=== PATIENT | male | born 1955 | race Caucasian/White ===

== ENCOUNTER 2025-04-26 11:53 | Outpatient (OUT) | payer MEDICARE, SELFPAY ==
--- OUTSIDE RECORDS SUMMARY | 2025-04-12 09:21 | XMS_ITS | Encounter Summary ---
Author Organization [facility] Address [address], [address] [place] [address] Care Team Providers Care Heater Operator Name Role Phone Dorota Cody MD Primary Care Provider [phone] Reason for Referral * Imaging (Routine) - ClosedSpecialtyDiagnoses / ProceduresReferred By Contact Referred To ContactRadiology Diagnoses Cervicalgia Procedures CT CERVICAL SPINE WO CONTRAST Dorota Cody MD [address] [place] [address] Phone: tel: fax: Referral IDStatusReasonStart DateExpiration DateVisits RequestedVisits [id number]/9/20259/9/202511 Reason for Visit * Imaging (Routine) - ClosedSpecialtyDiagnoses / ProceduresReferred By Contact Referred To ContactRadiology Diagnoses Cervicalgia Procedures CT CERVICAL SPINE WO CONTRAST Dorota Cody MD [address] [place] [address] Phone: tel: fax: Referral IDStatusReasonStart DateExpiration DateVisits RequestedVisits [id number]/9/20259/9/202511 Encounter Details DateTypeDepartmentCare Team (Latest Contact Info)Ororbifdymg08/14/2025 9:21 AM EDT - 04/14/2025 11:59 PM EDTHospital Encounter [facility] [address] [place] [address] Cervicalgia Discharge Disposition: Home or Self Care Social History Tobacco UseTypesPacks/DayYears UsedDateSmoking Tobacco: FormerSmokeless Tobacco: FormerAlcohol UseStandard Drinks/WeekCommentsNever0 (1 standard drink = 0.6 oz pure alcohol)AUDIT-CAnswerDate RecordedQ1: How often do you have a drink containing alcohol?Never12/05/2023Q2: How many drinks containing alcohol do you have on a typical day when you are drinking?Patient does not drink12/05/2023Q3: How often do you have six or more drinks on one occasion?Never12/05/2023 Interpersonal Safety Domain Source: IP Abuse ScreeningAnswerDate Recorded Physical qdvhkXhjlvx15/07/2024Verbal hmljhLaqdbc51/07/2024Emotional abuseDenies 12/05/2023Financial umdohAbntjt99/07/2024Sexual igoqaWzzjvg57/07/2024Sex and Gender InformationValueDate RecordedSex Assigned at BirthNot on fileLegal Sex Male12/09/2016 1:49 PM EDTGender IdentityNot on fileSexual OrientationNot on filedocumented as of this encounter Plan of Treatment Not on file documented as of this encounter Procedures Procedure NamePriorityDate/TimeAssociated DiagnosisCommentsCT CERVICAL SPINE WO ETFSANVSVckdzbr78/14/2025 9:55 AM EDT Cervicalgia documented in this encounter Results * CT CERVICAL SPINE WO CONTRAST (04/12/2025 9:55 AM EDT)Anatomical Region LateralityModalityC-spine, T-spine, NeckComputed TomographySpecimen (Source) Anatomical Location / LateralityCollection Method / VolumeCollection Time Received Time04/12/2025 9:55 AM EDT Impressions 04/16/2025 7:34 AM EDT 1. No acute findings. Narrative 04/16/2025 7:34 AM EDT INDICATION: Cervicalgia COMPARISON: Cervical spine x-rays 02/25/2025. TECHNIQUE: Routine noncontrast CT cervical spine was performed. Coronal and sagittal reformatted images were obtained and reviewed. Radiation dose reduction was utilized (automated exposure control, mA or kV adjustment based on patient size, or iterative image reconstruction). FINDINGS: There is preservation of normal cervical lordosis. Grade 1 anterolisthesis of C2 on C3. No significant prevertebral soft tissue swelling. No facet subluxation or dislocation. Odontoid process appears intact. Atlanto-axial articulation is unremarkable. No acute fracture is identified. Moderate degenerative changes C2-C3 through C5-C6. Evaluation of individual disc levels is as follows: C2-3: There is no disc herniation. There is no spinal canal or neural foraminal stenosis. C3-4: Posterior disc osteophyte complex indenting the sac without significant central canal stenosis. There is moderate to severe bilateral neural foraminal narrowing. C4-5: Posterior disc osteophyte complex indenting the ventral thecal sac causing mild central canal stenosis. There is moderate to severe bilateral neural foraminal narrowing. C5-6: Posterior disc bulge indenting the ventral thecal sac without significant central canal stenosis. There is mild to moderate bilateral neural foraminal narrowing C6-7: Tiny posterior disc bulge indents ventral thecal sac without significant central canal stenosis. There is no significant bilateral neural foraminal C7-T1: There is no disc herniation. There is no spinal canal or neural foraminal stenosis. Procedure Note EliaHorace bro MD - 04/16/2025 INDICATION: Cervicalgia COMPARISON: Cervical spine x-rays 02/25/2025. TECHNIQUE: Routine noncontrast CT cervical spine was performed. Coronaland sagittal reformatted images were obtained and reviewed. Radiation dose reduction was utilized (automated exposure control, mA or kV adjustmentbased on patient size, or iterative image reconstruction). FINDINGS: There is preservation of normal cervical lordosis. Grade 1 anterolisthesisof C2 on C3. No significant prevertebral soft tissue swelling. No facet subluxation or dislocation. Odontoid process appears intact. Atlanto-axial articulation is unremarkable. No acute fracture is identified. Moderate degenerative changes C2-C3 through C5-C6. Evaluation of individual disc levels is as follows: C2-3: There is no disc herniation. There is no spinal canal or neuralforaminal stenosis. C3-4: Posterior disc osteophyte complex indenting the sac withoutsignificant central canal stenosis. There is moderate to severe bilateral neuralforaminal narrowing. C4-5: Posterior disc osteophyte complex indenting the ventral thecal sac causing mild central canal stenosis. There is moderate to severe bilateral neural foraminal narrowing. C5-6: Posterior disc bulge indenting the ventral thecal sac withoutsignificant central canal stenosis. There is mild to moderate bilateral neuralforaminal narrowing C6-7: Tiny posterior disc bulge indents ventral thecal sac withoutsignificant central canal stenosis. There is no significant bilateral neuralforaminal C7-T1: There is no disc herniation. There is no spinal canal or neural foraminal stenosis. IMPRESSION: 1. No acute findings. Authorizing ProviderResult TypeResult StatusMarcipedro Cody MDIMG CT ORDERABLES Final Result documented in this encounter Visit Diagnoses Diagnosis Cervicalgia documented in this encounter Care Teams Team MemberRelationshipSpecialtyStart [place] [address] [place] [phone] PCP - GeneralFamily Medicine12/05/21documented as of this encounter
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
--- OUTSIDE RECORDS SUMMARY | 2025-04-26 12:00 | XMS_ITS | Clinical Summary ---
Author Organization [facility] Address [address] [place] [address] [place] [address] Care Team Providers Care Controls Designer Name Role Phone Unavailable Primary Care Provider Unavailabl e Allergies No known active allergies Medications MedicationSigDispense QuantityRefillsLast FilledStart DateEnd DateStatus oxyCODONE 5 MG Tab take 1-2 tablets by mouth every 6 hours as needed for Severe Pain. 30 tablet 01/08/2016Active Additional Information Patient not taking.Reported on 04/18/2016 traMADol 50 MG Tab take 1 tablet by mouth 4 times daily. 120 tablet 01/08/2016Active acetaminophen 325 MG tablet take 1-2 tablets by mouth every 4 hours as needed for Mild Pain, Moderate Pain or Severe Pain. 30 tablet 01/08/2016Active citalopram 10 MG Tab take 1 tablet by mouth daily. 30 tablet 01/08/2016Active traZODone 150 MG Tab take 1 tablet by mouth at bedtime. 30 tablet 01/08/2016Active Additional Information Patient not taking.Reported on 04/18/2016 docusate 100 MG Cap take 1 capsule by mouth 2 times daily. 60 capsule 01/08/2016Active Additional Information Patient not taking.Reported on 04/18/2016 senna 17.2 MG Tab take 1 tablet by mouth daily. 30 tablet 01/08/2016Active Additional Information Patient not taking.Reported on 04/18/2016 melatonin 3 MG Tab take 2 tablets by mouth at bedtime. 30 tablet 01/08/2016Active Additional Information Patient not taking.Reported on 04/18/2016 lidocaine 5 % Patch Apply to R shoulder. Max of 12 hours of application then remove 30 patch 01/08/2016Active warfarin 4 MG tablet Indications:Deep vein thrombosistake 2 tablets by mouth every evening at 6 PM.. 60 tablet 01/09/2016Active Active Problems ProblemNoted DateDiagnosed DateHand edema12/28/2015Moderate protein-calorie edppkutpgauk58/28/2016Reactive lvcagrtgdmcliy71/28/2016Bacterial pneumonia 12/26/2015Acute blood loss ecjias4912/26/2015Elevated alkaline phosphatase level 12/26/2015Late effect of traumatic injury to brain12/22/2015Other diseases of nasal cavity and sinuses(478.19)09/23/2013 Social History Tobacco UseTypesPacks/DayYears UsedDateSmoking Tobacco: FormerAlcohol Use Standard Drinks/WeekCommentsNo0 (1 standard drink = 0.6 oz pure alcohol)Sex and Gender InformationValueDate RecordedSex Assigned at BirthNot on fileLegal Sex Male01/12/2013 3:53 PM EDTGender DbqlidgsVdqh61/29/2017 9:20 AM EDTSexual OrientationNot on file Last Filed Vital Signs Vital SignReadingTime TakenCommentsBlood Yeunaxid137/9201/09/2016 8:00 AM EDT Jlcbv464101/09/2016 8:00 AM MZWWyhgolbzqsn52.8 ??C (98.2 ??F)01/09/2016 8:00 AM EDTRespiratory Xlku515101/09/2016 8:00 AM EDTOxygen Vqukkyfmei50%01/09/2016 8:00 AM EDTInhaled Oxygen Concentration--Vzpctj89 kg (138 lb 14.2 oz)01/08/2016 3:30 AM PKLGprmon363.3 cm (5' 11 )12/22/2015 6:00 PM EDTBody Mass Index19.37 12/22/2015 6:00 PM EDT Plan of Treatment Health MaintenanceDue DateLast DoneCommentsHEPATITIS C VIRUS BJEHBMZUI82[birth year]10/1956 HHOIOSH97 1955TDAP (ADULT)1975LIPID WEBGIOAAO83/10/1997COLORECTAL CANCER SCREENING ZTBTRDYGTA54/10/2002PNEUMOCOCCAL VACCINE SERIES (1 of 1 - PCV) 2006ZOSTER (SHINGLES) VACCINE (1 of 2)2006PROSTATE CANCER SCREENING MROWRXLHHA90/10/2012BDOMINAL AORTIC ANEURYSM HIGH RISK ZOXKFF582COVID-19 VACCINE (2024- season)2025INFLUENZA VACCINE (#1)2025RSV VACCINE (1 - 1-dose 75+ series)2031HEP B VACCINEAged OutNo longer eligible based on patient's age to complete this topic Insurance Advance Directives For more information, please contact: [phone] (7:30 AM - 6PM [facility], Friday-Friday) * Full Code (Latest Code Status on File) Date ActivatedDate InactivatedCombeverly hospital12/22/2015 5:57 PM01/09/2016 4:53 PM
--- OUTSIDE RECORDS SUMMARY | 2025-04-26 12:00 | XMS_ITS | Clinical Summary ---
Author Organization [facility] Address [address] [place] [address] Care Team Providers Care Truck Driving Instructor Name Role Phone Dorota Cody MD Primary Care Provider [phone] Allergies No known active allergies Medications MedicationSigDispense QuantityRefillsLast FilledStart DateEnd DateStatus pantoprazole (ProtoNix) 20 MG EC tablet Take 20 mg by mouth in the morning.Active Active Problems ProblemNoted DateDiagnosed DatePrimary osteoarthritis of both hips01/20/2023 Rupture of pectoralis major alylku8404/06/2018Traumatic brain injury with loss of cpnzrwskvvvyx29/26/2017 Overview (01/20/2023): [facility] [id number] DOI 12/08/2015 DX S06.9X9A Traumatic intracranial subdural kohgfhschl65/26/2017 Overview (01/20/2023): [facility] [id number] DOI 12/08/2015 DX S06.5XA Deep venous thrombosis of lower yzflzurmg15/26/2017 Overview (01/20/2023): [facility] [id number] DOI 12/08/2015 DX I82.432 Type III open fracture of right ulna01/30/2016Acute deep vein thrombosis (DVT) of popliteal vein of left lower dgyzclwza99/22/2016 Overview (01/20/2023): Last Assessment & Plan: IVC filter placed while hospitalized for L popiteal DVT while patient was unable to be anticoagulated 2/2 SDHPatient now on coumadin currently managed per [facility] Patient to follow up with Dr. Arce as OP to discuss removal of IVC as recommended at hospital discharge Subdural nqivtpgc88/21/2016 Family History RelationNameStatusCommentsFatherpre diabetes Social History Tobacco UseTypesPacks/DayYears UsedDateSmoking Tobacco: NeverSmokeless Tobacco: NeverAlcohol UseStandard Drinks/WeekCommentsNever0 (1 standard drink = 0.6 oz pure alcohol)Sex and Gender InformationValueDate RecordedSex Assigned at Not on fileLegal MnpBmkg7409/11/2022 6:48 PM EDTGender IdentityNot on fileSexual OrientationNot on file Last Filed Vital Signs Vital SignReadingTime TakenCommentsBlood Mafakyeu751/58010/28/2024 12:56 PM EDT Mfsli268110/28/2024 12:56 PM IRHYltconwetop25.7 ??C (96.3 ??F)10/28/2024 12:56 PM EDTRespiratory Rugo625010/28/2024 12:56 PM EDTOxygen Saturation--Inhaled Oxygen Concentration--Iaoqgc51.6 kg (160 lb)10/28/2024 12:56 PM NQOEdrirh676.3 cm (5' 11 )10/28/2024 12:56 PM EDTBody Mass Index22.32010/28/2024 12:56 PM EDT Plan of Treatment Not on file Insurance Care Teams Team MemberRelationshipSpecialtyStart DateEnd Date Dorota Cody MD [facility] [place] [address] [facility]10/19/24
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
--- OUTSIDE RECORDS SUMMARY | 2025-04-26 12:00 | XMS_ITS | Clinical Summary ---
Author Organization [facility] Address [address] [place] [address] Care Team Providers Care Vessel Slagman Name Role Phone No, Physician Primary Care Provider Unavailabl e Allergies No known active allergies Medications MedicationSigDispense QuantityRefillsLast FilledStart DateEnd DateStatus warfarin (COUMADIN) 4 MG tablet Take 8 mg by mouth daily.Active citalopram (CELEXA) 10 MG tablet Take 10 mg by mouth daily.Active Active Problems ProblemNoted DateDiagnosed DateBacterial lynmtlnud41/22/2016 Assessment & Plan (12/21/2015 12:34 PM EDT): On Cipro PO, stop date 12/22 Acute deep vein thrombosis (DVT) of popliteal vein of left lower extremity 12/20/2015 Assessment & Plan (01/05/2016 8:50 AM EDT): IVC filter placed while hospitalized for L popiteal DVT while patient was unable to be anticoagulated 2/2 SDH Patient now on coumadin currently managed per [facility] physicians Patient to follow up with Dr. Arce as OP to discuss removal of IVC as recommended at hospital discharge Assessment & Plan (12/21/2015 12:34 PM EDT): L popliteal DVT - Unable to fully anticoagulate 2/2 SDH - IVC filter in place, continue prophylactic lovenox on d/c Sqfxooakgsjegg47/22/2016 Assessment & Plan (12/22/2015 8:09 AM EDT): Improved Platelet count 727 from 913/1048 Discontinue ASA therapy TBI (traumatic brain injury)12/09/2015 Assessment & Plan (12/21/2015 12:31 PM EDT): Tiny subdural hematoma along the anterior right middle cranial fossa - NSx has signed off - Ok to give ASA and Lovenox per neurosurgery - Significant cognitive deficits, will require inpatient rehab Open fracture of nasal bone with routine yuqqwkz5812/09/2015 Assessment & Plan (01/05/2016 8:44 AM EDT): Patient s/p nasal reduction 12/[address] Alarcon as OP as recommended at hospital discharge Assessment & Plan (12/21/2015 12:31 PM EDT): Comminuted displaced fracture of the right nasal bone / left nasal bone and bilateral maxillary spines - MF followed: s/p nasal reduction 12/07 - Sutures out - Recommend outpatient follow up - Local wound care Closed fracture of left scapula with routine uliprop8512/09/2015 Assessment & Plan (12/21/2015 12:32 PM EDT): Comminuted fracture of the left scapular body, fracture at the base of the coracoid process and nondisplaced fracture of the base of the acromion - Ortho followed: NOM Traumatic gzrqbpsthkyw03/11/2016 Assessment & Plan (01/05/2016 8:51 AM EDT): Repeat CXR performed today:Tiny residual left apical pneumothorax, significantly decreased in size Patient recommended to follow up in [address] Toribio Assessment & Plan (12/21/2015 12:33 PM EDT): - Resolved Fracture of pelvis with routine zjtibum9812/09/2015 Assessment & Plan (12/21/2015 12:34 PM EDT): L sacral, pubic and iliac fractures - Ortho following: NOM, WBAT Bhmwmjlweoxhjspqn14/11/2016Closed fracture of multiple ribs of left side 12/08/2015 Assessment & Plan (01/05/2016 8:43 AM EDT): Left side rib fractures s/p rib fixation 12/12 Post of drain removed uneventfully Incisional inocente removed and edges remained well approximated No s/s of infection noted to incision or drain site CXR performed today: Tiny residual left apical pneumothorax, significantly decreased in size.?? A small left pleural effusion is also noted with mild left basilar atelectasis. Previously noted right basilar infiltrates have resolved. Patient to follow up with Dr. Toribio in 2 weeks for continued monitoring of healing Assessment & Plan (12/22/2015 8:06 AM EDT): L 3-10 rib fractures, s/p rib fixation 12/12 - Doing well post-op - CT and MITUL drain #1 removed 12/18 - MITUL drain #2 with 80cc/past 24 hours - per Dr. Toribio. Leave drain in until less than 25cc/24 hours - Good pain control Open fractures of both upper sgdfoncbnde02/10/2016 Assessment & Plan (01/05/2016 8:47 AM EDT): s/p OIRF R forearm 12/10, initial ex fix and I&D of L olecranon, s/p removal of ex fix and ORIF L humerus and olecranon on 12/19 NWB to BUE, ROM to R elbow Follow up as OP with Dr. Jefferson for bilateral olecranon fxs and L humerus and Dr. Hernandez for R scaphoid and L 5th MC fractures as recommended at discharge Assessment & Plan (12/21/2015 12:41 PM EDT): s/p OIRF R forearm 12/10, initial ex fix and I&D of L olecranon, s/p removal of ex fix and ORIF L humerus and olecranon on 12/19 - NWB to BUE, ROM to R elbow - Pain control - Follow up with once discharged for R scaphoid and L 5th MC fractures Resolved Problems ProblemNoted DateDiagnosed DateResolved DateAcute respiratory zidrwti1112/08/2015 12/22/2015 Assessment & Plan (12/21/2015 12:33 PM EDT): - Resolved Family History Medical HistoryRelationCommentsHypertensionMotherRelationStatusCommentsMother Social History Tobacco UseTypesPacks/DayYears UsedDateSmoking Tobacco: FormerAlcohol Use Standard Drinks/WeekCommentsNo0 (1 standard drink = 0.6 oz pure alcohol)Sex and Gender InformationValueDate RecordedSex Assigned at BirthNot on fileLegal Sex Male11/16/2015 5:53 PM EDTGender IdentityNot on fileSexual OrientationNot on file Last Filed Vital Signs Vital SignReadingTime TakenCommentsBlood Xhvbfmar825/8611 1:04 PM EDT Xroax846905/01/2016 1:04 PM YWWBxcmeaksmqx01.9 ??C (98.5 ??F)01/04/2016 11:14 AM EDTRespiratory Mxgb700807/01/2015 1:04 PM EDTOxygen Zbyfqltokh92%05/01/2016 1:04 PM EDTInhaled Oxygen Concentration--Kcomci51.8 kg (156 lb)05/01/2016 9:16 AM EDT Oummvj025.3 cm (5' 11 )05/01/2016 9:16 AM EDTBody Mass Index21.7605/01/2016 9:16 AM EDT Plan of Treatment Health MaintenanceDue DateLast DoneCommentsCT Jbwuqfymrtzh10/10/1957Colonoscopy 1956Colorectal Cancer Screening/Ctrazkpdiw07/10/1957Fecal DNA1956 Fecal occult blood test (FOBT,FIT)1956PSA Level1956Wellness Visit 1959Depression Screening/Follow-Up (PHQ-2/9)1968Hepatitis C Wxgxwtmgs73/10/1975Tetanus/Diphtheria/Pertussis (1 - Tdap)1975Pneumococcal Vaccine: 50+ Years (1 of 1 - PCV)2006Zoster Vaccines (1 of 2)2006 Falls Risk Yfplxuzasx26/10/2022COVID-19 Vaccine (1 - season)2025 Influenza Vaccine (#1)/08/2019RSV Vaccines (1 - 1-dose 75+ series) 2031HIB VaccinesAged OutNo longer eligible based on patient's age to complete this topicHPV VaccinesAged OutNo longer eligible based on patient's age to complete this topicHepatitis A VaccinesAged OutNo longer eligible based on patient's age to complete this topicHepatitis B VaccinesAged OutNo longer eligible based on patient's age to complete this topicIPV VaccinesAged OutNo longer eligible based on patient's age to complete this topicMeningococcal ACWY VaccineAged OutNo longer eligible based on patient's age to complete this topic Meningococcal B VaccineAged OutNo longer eligible based on patient's age to complete this topicRotavirus VaccinesAged OutNo longer eligible based on patient's age to complete this topic Medical Devices ImplantedTypeAreaManufacturerDevice IdentifierShelf Expiration DateModel / Serial / LotCement Bone Antibiotic Simplex P W/Tobramycin - [id number] Implanted:Qty: 1 on 12/20/2015 [facility] Uyen OR08/27/[id number] / / [id number] Filter Aln Jugular - [id number] Implanted:Qty: 1 on 12/12/2015 by Daryn Arce MD at [facility] WsskqkBIR38/30/2020FJ.HOOK / [id number] / [id number] Combination Clamp Mr Safe Implanted:Qty: 6 on 12/08/2015 by Tristin Jefferson MD at [place] 146970 005 / / 11.0mm Carbon Fiber Maurice 150mm Implanted:Qty: 2 on 12/08/2015 by Tristin Jefferson MD at [place] 146974.82 / / 11.0mm Carbon Fiber Maurice 250mm Implanted:Qty: 1 on 12/08/2015 by Tristin Jefferson MD at [place] [address].84 / / Plate 3.5 X 111mm 8hl Lcp - [id number] Implanted:Qty: 2 on 12/11/2015 by [facility]in [facility] LT223.581 / / Description:1 for radius, 1 for ulna.Screw 3.5x16mm Cortex Self-Tap - [id number] Implanted:Qty: 12 on 12/11/2015 by Tristin Jefferson MD at [facility]: [facility] LT204.816 / / Description:6 for radius, 6 for ulnaScrew 3.5x18mm Cortex Self-Tap - [id number] Implanted:Qty: 3 on 12/11/2015 by Tristin Jefferson MD at [facility]: [facility]204.818 / / Description:2 for radius, 1 for ulnaScrew 2.7 X 8mm Locking Ribloc U Plus - [id number] Implanted:Qty: 10 on 12/13/2015 [facility] ChestACUTE [id number] / / Description:ribsScrew 2.7 X 10mm Locking Ribloc U Plus - [id number] Implanted:Qty: 6 on 12/13/2015 [place] [facility]: Chest[facility]UTE [id number] / / Plate 75mm 8hl Ribloc U Plus - [id number] Implanted:Qty: 4 on 12/13/2015 by Alex Toribio MD at [facility]: ChestACUTE [id number] / / Description:ribsScrew 2.7 X 6mm Locking Ribloc U Plus - [id number] Implanted:Qty: 7 on 12/13/2015 [facility] ChestACUTE [id number] / / Description:ribsPlate 5hl Lt Olecranon Std - [id number] Implanted:Qty: 1 on 12/20/2015 by Tristin Jefferson MD at [facility]: HgrhrGfmDwq07-1680 / / Plate 8hl Medial - [id number] Implanted:Qty: 1 on 12/20/2015 by Tristin Jefferson MD at [facility]: ElbowAcuMedPL-[id number] / / Cancellous Screw 4.0 X 50 Implanted:Qty: 1 on 12/20/2015 [facility]: [id number] / / Plate 7hl Lt Humerus Post-Lat Distal - [id number] Implanted:Qty: 1 on 12/20/2015 by Tristin Jefferson MD at [facility]: UabxiEuiWwa73-1322 / / Screw 3.5 X 10mm Non-Lock Hexalobe - [id number] Implanted:Qty: 1 on 12/20/2015 by Tristin Jefferson MD at [facility]: RsxtoSaeNfb69-0831 / / Screw 3.5 X 16mm Non-Lock Hexalobe - [id number] Implanted:Qty: 1 on 12/20/2015 by Tristin Jefferson MD at [facility]: JoroiFknSld29-1812 / / Screw 3.5 X 18mm Non-Lock Hexalobe - [id number] Implanted:Qty: 3 on 12/20/2015 by Tristin Jefferson MD at [facility]: CunnaExkGxl15-5850 / / Screw 3.5 X 20mm Non-Lock Hexalobe - [id number] Implanted:Qty: 1 on 12/20/2015 by Tristin Jefferson MD at [facility]: UxgtrElqGxb95-6057 / / Screw 3.5 X 22mm Non-Lock Hexalobe - [id number] Implanted:Qty: 2 on 12/20/2015 by Tristin Jefferson MD at [facility]: YetyzCbuJxd62-8261 / / Screw 3.5 X 24mm Non-Lock Hexalobe - [id number] Implanted:Qty: 2 on 12/20/2015 by Tristin Jefferson MD at [facility]: TondiTjtNta56-2119 / / Screw 3.5 X 26mm Non-Lock Hexalobe - [id number] Implanted:Qty: 1 on 12/20/2015 by Tristin Jefferson MD at [facility]: IpjfzOwjMbk26-0162 / / Screw 3.5 X 28mm Locking Hexalobe - [id number] Implanted:Qty: 1 on 12/20/2015 [facility] CcfocKnbWlw97-0795 / / Screw 3.5 X 45mm Locking Hexalobe - [id number] Implanted:Qty: 1 on 12/20/2015 by Tristin Jefferson MD at [facility]: [id number] / / Screw 3.5 X 50mm Locking Hexalobe - [id number] Implanted:Qty: 2 on 12/20/2015 by Tristin Jefferson MD at [facility]: FmljtZtfWkh98-2502 / / Screw 2.7 X 14mm Locking Hexalobe - [id number] Implanted:Qty: 3 on 12/20/2015 by Tristin Jefferson MD at [facility]: [id number] / / Screw 2.7 X 18mm Locking Hexalobe - [id number] Implanted:Qty: 2 on 12/20/2015 by Tristin Jefferson MD at [facility]: [id number] / / Screw 2.7 X 20mm Locking Hexalobe - [id number] Implanted:Qty: 3 on 12/20/2015 by Tristin Jefferson MD at [facility]: TdaraIqjUsz38-1062 / / ExplantedTypeAreaManufacturerDevice [facility] CAref Expiration DateModel / Serial / LotScrew 4 X 175mm Schanz Self-Drill 40mm Thrd - [id number] Implanted:Qty: 4 on 12/08/2015 by Tristin Jefferson MD at [place] Explanted:Qty: 4 on 12/20/2015 by Tristin Jefferson MD at [facility] [id number] / / Insurance Advance Directives For more information, please contact: [phone] * Full Code (Latest Code Status on File) Date ActivatedDate InactivatedComments12/11/2015 11:11 PM12/22/2015 7:33 PM Care Teams Team MemberRelationshipSpecialtyStart DateEnd Date No, Physician [facility] PCP - Lbkcnma72/27/16
--- OUTSIDE RECORDS SUMMARY | 2025-04-26 12:01 | XMS_ITS | Patient Health Record ---
Author Organization [facility] Address [address] [place] [address] Care Team Providers Care Continuous Improvement Black Belt Name Role Phone Dorota Cody M.D. Primary Care Provider Harvinder Granados Unavailable [phone] Reason For Referral No Information Medications Medication SIG (Take, Route, Frequency, Duration) Notes Start Date End Date Status Heartburn Relief 10 mg 1 tab(s) orally once ActiveAcid Reflux Medication prnActiveAntacidActive Social History Tobacco Use: Social History Observation Description Date Details (start date - stop date) Never Smoker NA - NA Smoking History Question Answer Notes Smoking Status NonSmoker Problems Problem Type SNOMED Code ICD Code Onset Dates Problem Status W/U Status Risk Notes Problem 26011573 Other closed fra cture of distal end of right radius with routine healing, subsequent encounter (S52.591D) GiencvvbfhitwwmZogtwvk04596759Aixbdt fracture of distal end of right radius, unspecified fracture morphology, initial encounter (S52.501A)Activeconfirmed Qmxhyzg38400220Pzbkf closed fracture of distal end of right radius, initial encounter (S52.591A)Activeconfirmed Plan Of Treatment No Information Insurance Providers Payer Name Payer Address Payer Phone Subscriber Number Group Number Insured Name Patient Relationship to Insured Coverage Start Date Coverage End Date Medicare [employer] [address] [place] [phone] [id number] Krishna Lujan Self - patient is the insured Medical (General) History Surgical History Surgery Date(Month/Year) multiple
--- OUTSIDE RECORDS SUMMARY | 2025-04-26 12:01 | XMS_ITS | Clinical Summary ---
Author Organization [facility] tem Address [id number] [address] [place] [address] Care Team Providers Care Labor Specialist Name Role Phone Dorota Cody MD Primary Care Provider [phone] Allergies No known active allergies Medications MedicationSigDispense QuantityRefillsLast FilledStart DateEnd DateStatus pantoprazole (PROTONIX) 20 mg EC tablet Take 20 mg by mouth daily.06/08/2020Active Active Problems No known active problems Family History Medical HistoryRelationNameCommentsDiabetesFatherHeart diseaseMotherRelationName StatusCommentsFatherAliveMotherAlive Social History Tobacco UseTypesPacks/DayYears UsedDateSmoking Tobacco: FormerCigarettes0.55 Smokeless Tobacco: FormerSnuffAlcohol UseStandard Drinks/WeekCommentsNot Currently0 (1 standard drink = 0.6 oz pure alcohol)Sex and Gender Information ValueDate RecordedSex Assigned at BirthNot on fileLegal GufWbsc9602/19/2021 10:40 AM EDTGender IdentityNot on fileSexual OrientationNot on file Last Filed Vital Signs Vital SignReadingTime TakenCommentsBlood Kwfoiqog778/9009 2:42 PM EDT Opfei8169 10:55 AM DORZzzrfsbijko87.5 ??C (97.7 ??F)03/21/2021 2:42 PM EDTRespiratory Oafi327603/01/2021 7:46 AM EDTOxygen Mcikqygvhe42%03/01/2021 10:45 AM EDTInhaled Oxygen Concentration--Lgwylz32.1 kg (154 lb 9.6 oz)03/21/2021 2:42 PM VXMApruym795.8 cm (5' 10 )03/21/2021 2:42 PM EDTBody Mass Index22.18 03/21/2021 2:42 PM EDT Plan of Treatment Health MaintenanceDue DateLast DoneCommentsDepression Cebtjtigd91/10/1969Tobacco Awjsmuzha47/10/1969Adult BMI Kpizjxcuq76/10/1975Zoster (Shingles) Vaccine (1 of 2)2006Fall Risk Rokhpsbuv15/10/2022DTaP,Tdap and Td Vaccines (2 - Td or Tdap)504/12/2014, 08/10/2001COVID-19 Vaccine (3 - season) /08/2020, 09/09/2020Influenza Uzskcfm83/08/2019Colonoscopy /07/2020, 03/01/2021 Medical Devices Not on file Procedures Procedure NamePriorityDate/TimeAssociated DiagnosisCommentsPROVATION COLONOSCOPY Esbxwzs6503/01/2021 7:43 AM EDT from Last 3 Months or Most Recently Relevant to Health Maintenance Results * Colonoscopy Report (03/01/2021 7:43 AM EDT)Specimen (Source)Anatomical Location / LateralityCollection Method / VolumeCollection TimeReceived Time Narrative SYSTEMGENERATED, DOCUMENTATION - 03/01/2021 7:43 AM EDT This order has been auto-finalized for image and report archival in PACs. *For full report details, please reach out to your physician. ??Effective 11/14/20 this image will be visible to you in MyChart.* Authorizing ProviderResult TypeResult StatusMichael E Grillis DOIMG OR IMG ORDERABLESFinal Result from Last 3 Months or Most Recently Relevant to Health Maintenance Insurance Care Teams Team MemberRelationshipSpecialtyStart DateEnd Date Dorota Cody MD [address] [place] [phone] PCP - GeneralFamily Medicine02/19/21
--- OUTSIDE RECORDS SUMMARY | 2025-04-26 12:01 | XMS_ITS | Clinical Summary ---
Author Organization [facility] Address [address] [facility] [address] [place] [address] Care Team Providers Care Volunteer Recruitment Coordinator Name Role Phone Velia Chiang MD Unavailable Source Comments The following information is NOT included in Care Everywhere downloads:Psychiatric notes, ECG results, Cardiac Rehab notes, Pulmonary Function notes, data from SmartForms (includes but not limited toPregnancy data,audiograms, eye exams, pre-surgical evaluation notes, well-child exam data).[facility] Allergies No known active allergies Medications MedicationSigDispense QuantityRefillsLast FilledStart DateEnd DateStatus oxymetazoline (AFRIN) 0.05 % nasal solution Instill 2 Sprays into each nostril 2 times daily as needed for Congestion. If nose bleed occurs. Donot use for more than 3 consecutive days. 1 Bottle Active sodium chloride (OCEAN NASAL SPRAY) 0.65 % nasal spray Instill 1 [place] into each nostril as needed for Congestion. For dry nose. 1 Bottle Active docusate sodium (COLACE) 100 MG capsule Take 1 Capsule by mouth 2 times daily. 60 Capsule Active meloxicam (MOBIC) 15 MG tablet 02/06/2020Active Active Problems ProblemNoted DateDiagnosed DateNasal valve iwxcafvx38/26/2020 Overview (08/25/2019): Added automatically from request for surgery [id number] ([facility]) Multiple closed fractures of ribs of left side06/26/2018([facility]) Contusion of one lung06/26/2018([facility]) Closed zone 1 fracture of ixewwl8406/26/2018([facility]) Fracture of lower end of left dgojxar0706/26/2018([facility]) Nondisplaced fracture of styloid process of right gnskyf9106/26/2018([facility]) Closed nondisplaced fracture of styloid process of right ulna06/26/2018([facility]) Nondisplaced fracture of middle third of navicular bone of right wrist06/26/2018([facility]) PECTORALIS MAJOR TENDON RUPTURE - LEFT SUWHUDLE15/02/2018([facility]) Nondisp fx of olecran pro w/o intartic extn l ulna, 7thB12/18/2017([facility]) TRAUMATIC BRAIN EKNGMD0804/23/2017([facility]) OTHER VITREOUS OPACITIES, BILATERAL EYES10/30/2016([facility]) 100% Loss of use LEFT ARM09/24/2016 ([facility]) Injury to brachial plexus - RIGHT06/25/2016([facility]) SITUATIONAL POPLITEAL PNJPMVX1805/27/2016Nasal /19/2016([facility]) Open displaced comminuted supracondylar fracture without intercondylar fracture of left lraaoer6801/30/2016 ([facility]) FRACTURE LEFT OLECRANONON WBCBSEQIFMG00/02/2016([facility]) Type III open fracture of right ulna01/30/2016([facility]) Open fracture of shaft of right radius, type III01/30/2016([facility]) Acute respiratory ykmrjcb7512/19/2015([facility]) Laceration of head12/19/2015([facility]) Closed fracture of superior kgyillj4112/19/2015([facility]) TRAUM SUBDR HEM W LOC OF UNSP LVOTKEMY58/21/2016([facility]) Pneumothorax, traumatic 12/19/2015([facility]) Fracture of left ilium12/19/2015([facility]) Displaced fracture of body of left hkptmki5212/19/2015([facility]) Displaced fracture of base of fifth metacarpal bone of left hand12/19/2015([facility]) Nasal bones, closed uoyevmgv42/10/2016([facility]) Malar and maxillary bones, closed lwelrvnr88/10/2016 Immunizations ImmunizationAdministration DatesNext DueHep A, unspecified formulation (CVX=85) 06/12/2001,12/03/2000Influenza, injectable, quadrivalent, preservative free (YVQ=770)04/13/2021,04/01/2020Pfizer Monovalent (12+ yrs) SARS-COV-2 (COVID-19) vaccine, mRNA, spike protein, LNP, pres. free, 30mcg/0.3mL dose (GUK=680) 09/30/2020,09/09/2020Td (adult), unspecified formulation (HTC=542)08/10/2001Tdap (QKS=292)10/04/2014 Family History Medical HistoryRelationNameCommentsNo Known ProblemsOtherRelationNameStatus CommentsBrotherAliveFatherAliveMotherAliveOtherSisterAlive Social History Tobacco UseTypesPacks/DayYears UsedDateSmoking Tobacco: FormerCigarettesQuit: 02/25/1990mokeless Tobacco: NeverAlcohol UseStandard Drinks/WeekCommentsNo0 (1 standard drink = 0.6 oz pure alcohol)PHQ-2AnswerDate RecordedPHQ-2 Total0 03/20/2018Substance UseTypesUse/WeekCommentsNoSex and Gender InformationValue Date RecordedSex Assigned at BirthNot on fileLegal TbmWvnp2102/15/2016 3:07 PM EDT Gender IdentityNot on fileSexual OrientationNot on file Last Filed Vital Signs Vital SignReadingTime TakenCommentsBlood Ijnlqcgj708/8704 11:38 AM EDT Ppjjr9944 11:38 AM IKFTjlzmxbkalz07.3 ??C (97.4 ??F)10/16/2018 11:09 AM EDTRespiratory Nxui2354 11:38 AM EDTOxygen Npotxpnyce80%10/16/2018 11:38 AM EDTInhaled Oxygen Concentration--Obssqb87.1 kg (170 lb)02/08/2020 8:00 AM EDT Wrudzm831.3 cm (5' 11 )02/08/2020 8:00 AM EDTBody Mass Index23.71002/08/2020 8:00 AM EDT Plan of Treatment Health MaintenanceDue DateLast OuagFwpvlhdiYfgdtbzezst45/10/1957Hepatitis C Rcvwiwgs31/10/8994Oefxxfondcn92/10/1992CRC Pxteawkly01/10/2002Cologuard (Stool DNA)2001FIT2001Pneumococcal Vaccine(s) (50+ yrs) (1 of 1 - PCV) 2006Shingles (RZV) Vaccine (1 of 2)2006Hepatitis B (HBV) Vaccine (optional start 60+ years)2016Abdominal Aortic Aneurysm Ncjisvy0208/09/2021 Tetanus (Td or Tdap) Reeoxdd35/07/387868/12/2014, 08/10/2001COVID-19 Vaccine ( - 2024- season)/02/2021, 09/30/2020, 09/09/2020Influenza Vaccine (#1)/, 04/01/2020RSV vaccine (adult) (1 - 1-dose 75+ series) 2031Hepatitis A (HAV) GvqbwkfAhyehcdnz18/14/2001, 12/03/2000Tdap Booster Wplpndlgm44/07/2015 Care Teams Team MemberRelationshipSpecialtyStart DateEnd Date Velia Chiang MD [address] [place] [address] PhysicianPlastic Uyfxyze99/6/20
--- OUTSIDE RECORDS SUMMARY | 2025-04-26 12:01 | XMS_ITS | Clinical Summary ---
Author Organization [facility] Address [address], [address] [place] [address] Care Team Providers Care Directional Bore Operator Name Role Phone Dorota Cody MD Primary Care Provider [phone] Allergies No known active allergies Medications MedicationSigDispense QuantityRefillsLast FilledStart DateEnd DateStatus pantoprazole (PROTONIX) 20 MG tablet Take 20 mg by mouth daily1Active Active Problems ProblemNoted DateDiagnosed DateScar of qiupnen7605/14/2017Laceration w/o foreign body of unsp part of head, init05/14/2017 Encounters DateTypeDepartmentCare HobvDpqojssgrcf25/14/2025 9:21 AM EDT - 04/14/2025 11:59 PM EDTHospital Encounter [facility] [address] [place] [address] Cervicalgia Discharge Disposition: Home or Self Care04/01/2025Transcribe Orders Hook[facility] Pre [facility] [address] [place] [address] Dorota Cody MD Cervicalgia (Primary Dx)03/28/2025 10:46 AM EDT - 03/28/2025 11:59 PM EDT Hospital Encounter [facility] [address] [place] [address] Discharge Disposition: Home or Self Care03/23/2025 10:15 AM EDT - 03/23/2025 11:[address] [facility] Physical Therapy [address] [place] [place] [address] Kamran Miles, PT Discharge Disposition: Home or Self Care03/16/2025bstract [facility] Physical Therapy [address] [place] [address] Shock, Micaela S 02/25/2025 8:44 AM EDT - 02/27/2025 11:59 PM EDTHospital Encounter [facility] Radiology [address] [place] [address] Acute thoracic back pain, unspecified back pain laterality Discharge Disposition: Home or Self Carefrom Last 3 Months Immunizations ImmunizationAdministration DatesNext DueTD 2LF, TDVAX, (age 7y+), IM, 0.5mL 12/05/2023 Family History Medical HistoryRelationNameCommentsDiabetesFatherHigh Blood PressureMother RelationNameStatusCommentsFatherAliveMotherAlive Social History Tobacco UseTypesPacks/DayYears UsedDateSmoking Tobacco: FormerSmokeless [...] Domain Source: IP Abuse ScreeningAnswerDate Recorded Physical ilrcgEvjgtr60/07/2024Verbal gzqrtRrmvia30/07/2024Emotional abuseDenies 12/05/2023Financial edtgtThrqyr37/07/2024Sexual pvhxjZkxoxd75/07/2024Sex and Gender InformationValueDate RecordedSex Assigned at BirthNot on fileLegal Sex Male12/09/2016 1:49 PM EDTGender IdentityNot on fileSexual OrientationNot on file Last Filed Vital Signs Vital SignReadingTime TakenCommentsBlood Dirwwsdx493/80012/05/2023 6:44 PM EDT Esqqh789112/05/2023 6:44 PM OTPKiipgntduza30.8 ??C (98.2 ??F)12/05/2023 6:44 PM EDTRespiratory Ibsj133512/05/2023 6:44 PM EDTOxygen Qyxhgzcifu16%12/05/2023 6:44 PM EDTInhaled Oxygen Concentration--Kgvskz77 kg (150 lb)12/05/2023 6:44 PM EDT Trmpii121.3 cm (5' 11 )12/05/2023 6:44 PM EDTBody Mass Index20.9212/05/2023 6:44 PM EDT Plan of Treatment Health MaintenanceDue DateLast DoneCommentsDepression Lgowoh8308/09/1968Hepatitis C yebier1008/09/19742243Ppclhvaylpf50/10/2002Colorectal Cancer Lgsyhi7208/09/2001 FIT/FOBT: Average risk2001Fecal-DNA (Cologuard): Average risk2001 Sigmoidoscopy/CT sjvjamsqhcza46/10/2002Pneumococcal 50+ years Vaccine (1 of 1 - PCV)2006Shingles vaccine (1 of 2)2006AA Annual Wellness Visit (Medicare Advantage)06/30/2024Flu vaccine (#1)01/28/2025 06/19/2023, 06/17/2022, 04/13/2021, Additional history existsCOVID-19 Vaccine (2024- season)/02/2021, 09/30/2020, 09/09/2020rostate Specific Antigen (PSA) Screening or Ekthhkaoig12/29/202609/, 06/24/2024, 03/23/20243847Eyuorh94/26/202912/4Respiratory Syncytial Virus (RSV) or age 60 yrs+ (1 - 1-dose 75+ series)2DTaP/Tdap/Td vaccine (3 - Td or Tdap), 10/04/2014, 08/10/2001Hepatitis A vaccineAged Out 06/12/2001, 12/03/2000No longer eligible based on patient's age to complete this topicHepatitis B vaccineAged OutNo longer eligible based on patient's age to complete this topicHib vaccineAged OutNo longer eligible based on patient's age to complete this topicMeningococcal (ACWY) vaccineAged OutNo longer eligible based on patient's age to complete this topicMeningococcal B vaccineAged OutNo longer eligible based on patient's age to complete this topicPolio vaccineAged OutNo longer eligible based on patient's age to complete this topic Procedures Procedure NamePriorityDate/TimeAssociated DiagnosisCommentsCT CERVICAL SPINE WO JUWQSBAOOhryncg51/14/2025 9:55 AM EDT Cervicalgia PSA, YYUQYhbhlch23/29/2025 10:51 AM EDT XR CERVICAL SPINE (4-5 VIEWS)Bmsizyv0402/25/2025 9:03 AM EDT Acute thoracic back pain, unspecified back pain laterality LIPID MMFVUXbwavdd93/26/2024 10:07 AM EST from Last 3 Months or Most Recently Relevant to Health Maintenance Results * CT CERVICAL SPINE WO CONTRAST [...] canal or neural foraminal stenosis. Procedure Note Horace Rodrigez MD - 04/16/2025 INDICATION: Cervicalgia COMPARISON: Cervical [...] 1. No acute findings. Authorizing ProviderResult TypeResult StatusDorota Cody MDIMG CT ORDERABLES Final Result * (ABNORMAL) PSA, free (03/28/2025 10:51 AM EDT)ComponentValueRef RangeTest MethodAnalysis TimePerformed AtPathologist SignaturePSA4.20(H)0.00 - 4.00 ng/mL03/28/2025 10:51 AM EDFast Drinks LABORATORIESComment: The [employer] ECLIA assay is used. ??Results obtained with different assay methods cannot be used interchangeably. PSA, Free0.8ug/L03/28/2025 10:51 AM EDTMLopoly LABORATORIESPSA, Free Pct19.0% 03/28/2025 10:51 AM EDTMLopoly LABORATORIESComment: ? In patients with total PSA concentrations of 4-10 ng/mL, the probability of finding prostate cancer on needle biopsy in a patient age 60-69 years: % Free PSA ? Probability 0-10% ? 58% 11-18% ?34% 19-25% ?24% >25% 12% Other factors may help determine the actual risk of prostate cancer in individual patients. The free PSA percentage is an aid in distinguishing prostate cancer from benign prostatic conditions in men age 50 and older with a total PSA between 3 and 10 ng/mL and negative digital rectal examination findings. Specimen (Source)Anatomical Location / LateralityCollection Method / Volume Collection TimeReceived Time03/28/2025 10:51 AM EDT03/28/2025 10:52 AM EDT Narrative Authorizing ProviderResult TypeResult StatusBony Garcia MDCHEMISTRY ORDERABLESFinal ResultPerforming OrganizationAddressCity/State/ZIP CodePhone Number [facility] [address] [place] [address], [facility] [phone] [address] [place] [address], [facility] [phone] * XR CERVICAL SPINE (4-5 VIEWS) (02/25/2025 9:03 AM EDT)Anatomical Region LateralityModalityC-spine, T-spine, NeckComputed RadiographySpecimen (Source) Anatomical Location / LateralityCollection Method / VolumeCollection Time Received Time02/25/2025 9:03 AM EDT Impressions 03/02/2025 1:03 PM EDT FINDINGS/IMPRESSION: Severe disc degenerative change C3-C4 through C4-C5 and moderate degenerative change in the more inferior cervical spine. Moderate right foraminal narrowing C4-C5 on the right. Mild convex left cervical curve on the frontal view. Spinous processes are normal. Moderate diffuse facet degenerative changes. No acute change. Partial inclusion of the prior rib internal fixation on the left. Narrative 03/02/2025 1:03 PM EDT EXAM: XR CERVICAL SPINE (4-5 VIEWS) HISTORY: Acute thoracic back pain, unspecified back pain laterality. COMPARISON: None. Procedure Note Kyree Garcia Jr., MD - 03/02/2025 EXAM: XR CERVICAL SPINE (4-5 VIEWS) HISTORY: Acute thoracic back pain, unspecified back pain laterality. COMPARISON: None. IMPRESSION: FINDINGS/IMPRESSION: Severe disc degenerative change C3-C4 through C4-C5 and moderatedegenerative change in the more inferior cervical spine. Moderate right foraminal narrowing C4-C5 on the right. Mild convex left cervical curve on the frontal view. Spinous processes are normal. Moderate diffuse facet degenerative changes.No acute change. Partial inclusion of the prior rib internal fixation on the left. Authorizing ProviderResult TypeResult StatusDorota [facility]IEGA [facility] ORDERABLESFinal Result * Lipid Panel (06/24/2024 10:07 AM EST)ComponentValueRef RangeTest Method Analysis TimePerformed AtPathologist SignatureCholesterol, Hkems8057 - 199 mg/dL06/24/2024 10:07 AM ESTMERTermii webtech limited LABORATORIESComment: Cholesterol Guidelines: <200 Desirable 200-240 ??Borderline >240 Undesirable HDL63>40 mg/dL06/24/2024 10:07 AM ESTMERTermii webtech limited LABORATORIESComment: HDL Guidelines: <40 Undesirable 40-59 ?Borderline >59 Desirable LDL Agzvbvlhkba9297 - 100 mg/dL06/24/2024 10:07 AM ESTMERCY LABORATORIESComment: LDL Guidelines: <100 Desirable 100-129 ?? Near to/above Desirable 130-159 ?? Borderline >159 Undesirable Direct (measured) LDL and calculated LDL are not interchangeable tests. Chol/HDL Ratio2.7108/25/2023 10:07 AM ESTMERCY PNCTBSZACCORDzzsgbpnpeser20<150 mg/dL06/24/2024 10:07 AM ESTMERCY LABORATORIESComment: Triglyceride Guidelines: <150 Desirable 150-199 ??Borderline 200-499 ??High >499 Very high Based on AHA Guidelines for fasting triglyceride, March 2012. VLDL91 - 30 mg/dL06/24/2024 10:07 AM ESTMERCY LABORATORIESSpecimen (Source) Anatomical Location / LateralityCollection Method / VolumeCollection Time Received Time06/24/2024 10:07 AM EST06/24/2024 10:08 AM EST Narrative Authorizing ProviderResult TypeResult StatusKwabena Nkansah-Amankra MDCHEMISTRY ORDERABLESFinal ResultPerforming OrganizationAddressCity/State/ZIP CodePhone Number [facility] [address] [facility] [place] [address], [facility] [phone] [facility] [address] [id number] [phone] from Last 3 Months or Most Recently Relevant to Health Maintenance Insurance Care Teams Team MemberRelationshipSpecialtyStart DateEnd Date Dorota Cody MD [address] [place] [phone] PCP - GeneralFamily Medicine12/05/21
--- NOTE | 2025-04-26 12:03 | US_ITS ---
The [address] [address] Patient Name: SANDHYA MALIK MRN: [id number] date: 1955 Sex: M Assigned Patient Location: [facility] Current Patient Location: Accession/Order Number: [id number] Exam Date: 04/26/2025 12:04 Report Date: 04/27/2025 07:20 At the request of: CHELSI ESTEVES MD Procedure: US extremity nonvascular RT LIMITED ULTRASOUND - right forearm CLINICAL DATA: Mid ulnar lump for the past 4 days COMPARISON: None Real-time ultrasound evaluation of the area of patient's lump was performed. There is a linear echogenic structure with 3 associated rounded hypoechoic areas. The appearance raises question of the possibility of a surgical plate and correlation will be needed since there is no comparison imaging. There are no additional cystic or solid masses. There is slight increased vascularity in the area however the subcutaneous soft tissues otherwise appear symmetric when compared to the left side. US/US extremity nonvascular RT IMPRESSION: QUESTION OF A SURGICAL PLATE IN THE AREA OF PALPABLE CONCERN. CLINICAL CORRELATION IS RECOMMENDED. PLAIN TO IMAGING COULD BE PERFORMED FOR CONFIRMATION, IF WARRANTED. SLIGHT HYPEREMIA THOUGH NO FOCAL CYSTIC OR SOLID MASSES. Impression dictated by: Kim Willis M.D. 04/27/2025 7:20 AM Dictation Location: [place] [address] Electronically authenticated by: [id number] Y Date: 04/27/2025 07:20
== END 2025-04-26 11:54 | disposition home or self-care (01) ==
PROVIDERS: PCP Family Medicine; Visit Provider Family Medicine
DX: R22.31 Localized swelling, mass and lump, right upper limb (principal)
CPT/HCPCS: 76882